=== PATIENT | female | born 2000 | race Caucasian/White ===

== ENCOUNTER 2022-04-19 14:17 | Emergency (ER) | payer OTHER ==
[2022-04-19 14:53] LABS: BILIRUBIN,URINE NEGATIVE (NEGATIVE); GLUCOSE, URINE (UA) NEGATIVE (NEGATIVE); KETONES,URINE (UA) NEGATIVE (NEGATIVE); LEUKOCYTE ESTERASE, URINE NEGATIVE (NEGATIVE); NITRITE,URINE NEGATIVE (NEGATIVE); OCCULT BLOOD,URINE SMALL (NEGATIVE); PROTEIN,URINE NEGATIVE (NEGATIVE); UROBILINOGEN,URINE 0.2 (NORMAL) E.U./dL (NORMAL)
[2022-04-19 14:58] LABS: CLARITY,URINE HAZY (CLEAR)
[2022-04-19 14:59] LABS: HCG UR QUAL NEGATIVE
--- NOTE | 2022-04-19 15:05 | ED Physician Documentation ---
History of Present Illness - Stated complaint Stated Complaint: FEMALE - Chief complaint Chief Complaint: Abd Pain - Additonal information Additional information: 21-year-old female presents emergency department for evaluation of vaginal b leeding this been ongoing for 1 month. She states that she typically gets her periods about every 3 to 4 months and they only last for 1 week. Over the last few days she has been having heavy bleeding saturating at least 5 pads a day. Over the last 3 days she has begun to have some burning when she urinates as well as bilateral lower pelvic pain. No fevers nausea or vomiting. She is concerned she could have a UTI. She is not on any control or oral hormones. Denies any history of prolonged vaginal bleeding in the past. Does not smoke. Review of Systems Constitutional: denies: Fever, Chills GI: reports: Abdominal Pain : reports: Dysuria, Vaginal bleeding, Irregular menses. denies: Hematuria, Discharge Skin: reports: Reviewed and negative Musculoskeletal: reports: Reviewed and negative PD PAST MEDICAL HISTORY - Present Medications Home Medications: Ambulatory Orders Medication Instructions Recorded Confirmed Norgestimate-Ethinyl Estradiol 1 each PO DAILY #28 tablet 04/19/22 [Sprintec 28 Day Tablet] Ondansetron Odt [Zofran] 4 mg TL Q6H PRN #10 tablet 04/19/22 - Allergies Allergies/Adverse Reactions: Allergies Allergy/AdvReac Type Severity Reaction Status Date / Time No Known Drug Allergies Allergy Verified 04/19/22 14:27 PD ED PE NORMAL - General General: Alert and oriented X 3, No acute distress - HEENT HEENT: PERRL - Neck Neck: Supple, no meningeal sign, No adenopathy - Cardiac Cardiac: RRR, No murmur - Respiratory Respiratory: Clear bilaterally - Abdomen Abdomen: Normal bowel sounds, Soft. No: Non tender (Firm tender uterus noted. No guarding or rebound.) - Back Back: No CVA TTP, No spinal TTP - Derm Derm: Normal color, Warm and dry, No rash - Neuro Neuro: Alert and oriented X 3 Eye Opening: Spontaneous Motor: Obeys Commands Verbal: Oriented GCS Score: 15 Results - Vitals Vitals: Vital Signs - 24 hr 04/19/22 14:21 Temperature 36.2 C L Heart Rate 56 L Respiratory 16 Rate Blood Pressure 150/79 H O2 Saturation 100 Oxygen O2 Source Room air - Labs Labs: Laboratory Tests 04/19/22 04/19/22 04/19/22 14:34 15:09 15:09 WBC 6.7 RBC 3.70 L Hgb 10.1 L Hct 31.5 L MCV 85.1 MCH 27.3 MCHC 32.1 RDW 12.7 Plt Count 346 MPV 11.0 H Neut # (Auto) 3.7 Lymph # (Auto) 2.4 [place] # (Auto) 0.5 Eos # (Auto) 0.1 Baso # (Auto) 0.1 Absolute Nucleated RBC 0.00 Nucleated RBC % 0.0 Sodium 138 Potassium 3.8 Chloride 107 Carbon Dioxide 25 Anion Gap 6.0 BUN 14 Creatinine 0.5 Estimated GFR (MDRD) 159 Glucose 102 H Calcium 9.3 Total Bilirubin 0.6 AST 27 ALT 19 Alkaline Phosphatase 107 Total Protein 7.4 Albumin 3.9 Globulin 3.5 Albumin/Globulin Ratio 1.1 Lipase 32 Urine Color YELLOW Urine Clarity HAZY Urine pH 6.0 Ur Specific [place] >=1.030 H Urine Protein NEGATIVE Urine Glucose (UA) NEGATIVE Urine Ketones NEGATIVE Urine Occult Blood SMALL H Urine Nitrite NEGATIVE Urine Bilirubin NEGATIVE Urine Urobilinogen 0.2 (NORMAL) Ur Leukocyte Esterase NEGATIVE Urine RBC 0-5 Urine WBC 0-3 Ur Squamous Epith Cells MOD Squamous H Urine Bacteria Many H Ur Microscopic Review INDICATED Urine Culture Comments NOT INDICATED Urine HCG, Qual NEGATIVE - Rads (name of study) pelvic US Radiology: See rad report, Other (Per veterinary surgery technologist polycystic ovaries bilaterally. No free fluid. No fibroids.) PD Medical Decision Making - ED course Complexity details: reviewed results, considered differential, d/w patient, d/w internet consultant (Fabio) ED course: 21-year-old female presents to the emergency department for evaluation of prolonged episode of vaginal bleeding. She reports that she typically has irregular cycles every 3 to 4 months but they only last 1 week. This bleeding cycle began a month ago and has not stopped and over the last few days is gotten heavier. No syncope or tachycardia. On presentation to the emergency department she has normal vitals. I did obtain a CBC electrolytes and a urinalysis. She has a mild anemia with a hemoglobin of 10.1 and a crit of 31. There is no previous for comparison the patient denies any previous history of anemia. Her electrolytes were without acute worrisome findings. Urinalysis shows no findings of infection. She is not . Given the prolonged menstrual cycle we did obtain a pelvic ultrasound looking for fibroids. Per the veterinary surgery technologist no uterine fibroids were seen though she does have polycystic ovaries bilaterally. I briefly discussed this case with on-call OB Dr. Mccarthy. As patient is not a smoker and she has developed some mild anemia he would recommend starting an estrogen containing OCP such as Sprintec. He 5 tablets day 1 then 4 tablets day two, then 3 day 3, 2 tablets day 4 then 1 tablet daily thereafter. Patient should obtain [place] discussed the usual emergent return precautions for concerns of failure of symptoms to resolve any tachycardia fainting or syncopal episodes Departure - Departure Disposition: 01 Home, Self Care Clinical Impression: DUB (dysfunctional uterine bleeding), Polycystic bilateral ovaries Anemia Qualifiers: Anemia type: iron deficiency Iron deficiency anemia type: chronic blood loss Qualified Code(s): D50.0 - Iron deficiency anemia secondary to blood loss (chronic) Condition: Stable Record reviewed to determine appropriate education?: Yes Instructions: ED Bleed Irregular Vaginal Prescriptions: Norgestimate-Ethinyl Estradiol [Sprintec 28 Day Tablet] 1 each PO DAILY #28 tablet Ondansetron Odt [Zofran] 4 mg TL Q6H PRN #10 tablet PRN Reason: Nausea / Vomiting Comments: You were seen today in the emergency department because you have been having a prolonged menstrual cycle that lasted about 1 month and it has started to get heavier. You have developed a mild anemia. Your hemoglobin is 10.1. This is most likely due to the prolonged vaginal bleeding. The ultrasound today showed that you have mild polycystic ovaries bilaterally. This can be a cause of your prolonged vaginal bleeding. In order to stop this bleeding cycle we are going to start you on an estrogen cream containing control called Sprintec. You will take 5 tablets day 1, then 4 tablets day 2, then 3 tablets day 3, then 2 tablets daily For then 1 tablet thereafter. I have ordered you 3 refills of the control. Taking larger doses of estrogen for for short-term can cause some nausea so I have also sent some Zofran to the pharmacy for you Do not smoke or use nicotine-containing tablets while on estrogen-containing control. It can increase your risk to develop blood clots. I would expect with this treatment that your bleeding starts to resolve over the next week. If your bleeding does not resolve, gets heavier or you have any fainting episodes you do need to return to the ER. It is important that you discuss this ED visit with your primary care provider at [facility]. They may elect to make a referral for you to a women's health or OB provider.
[2022-04-19 15:15] LABS: BASOPHILS # (AUTO) 0.1 10^3/uL (0.0-0.1); BASOPHILS % (AUTO) 0.7 %; EOSINOPHILS # (AUTO) 0.1 10^3/uL (0.0-0.7); EOSINOPHILS % (AUTO) 2.1 %; HCT - HEMATOCRIT 31.5 % (37.0-47.0); HGB - HEMOGLOBIN 10.1 g/dL (12.0-16.0); LYMPHOCYTES # (AUTO) 2.4 10^3/uL (1.5-3.5); LYMPHOCYTES % (AUTO) 35.3 %; MEAN CORPUSCULAR HEMOGLOBIN 27.3 pg (27.0-31.0); MEAN CORPUSCULAR HGB CONC 32.1 g/dL (32.0-36.0); MEAN CORPUSCULAR VOLUME 85.1 fL (81.0-99.0); MONOCYTES # (AUTO) 0.5 10^3/uL (0.0-1.0); MONOCYTES % (AUTO) 7.4 %; NEUTROPHILS # (AUTO) 3.7 10^3/uL (1.5-6.6); NEUTROPHILS % (AUTO) 54.4 %; PLT - PLATELET COUNT 346 10^3/uL (130-450); RED CELL DISTRIBUTION WIDTH 12.7 % (12.0-15.0); WHITE BLOOD COUNT 6.7 x10^3/uL (4.8-10.8)
[2022-04-19 15:19] LABS: BACTERIA,URINE Many /HPF (None Seen); RBC,URINE 0-5 /HPF (0-5); SQUAMOUS EPITHELIAL CELL,UR MOD Squamous (<= Few); WBC,URINE 0-3 /HPF (0-5)
[2022-04-19 15:27] LABS: ALBUMIN 3.9 g/dL (3.2-5.5); ALBUMIN/GLOBULIN RATIO 1.1 (1.0-2.2); BILIRUBIN,TOTAL 0.6 mg/dL (0.2-1.0); CALCIUM 9.3 mg/dL (8.5-10.3); CREATININE 0.5 mg/dL (0.4-1.0); POTASSIUM 3.8 mmol/L (3.5-5.0); TOTAL PROTEIN 7.4 g/dL (6.7-8.2)
[2022-04-19 16:16] VITALS: BP 136/67
--- NOTE | 2022-04-19 17:06 | Ultrasound Report ---
PROCEDURE: Pelvic w/Transvag+Doppler Comp INDICATIONS: vaginal bleeding X 1 month TECHNIQUE: Real-time scanning was performed of the pelvic organs, with image documentation. Additional endovagi nal scanning was necessary due to incomplete visualization of the adnexal and endometrial structures by transabdominal scanning. Doppler interrogation was performed of the ovaries bilaterally. COMPARISON: None. FINDINGS: No pathologic free abdominal or pelvic fluid. Uterus: Uterus is normal in size at 6.6 x 3.6 x 4.4 cm. The endometrium measures 11 mm in combined thickness. Ovaries: The right ovary measures 4.9 x 2.6 x 2.3 cm, with a calculated volume of 15.3 cc and the le ft ovary measures 3.9 x 2.8 x 2.8 cm, with a calculated volume of 16 cc. No significant ovarian abno rmalities are seen. There are more than 12 follicles seen on each side. No adnexal masses are seen . Normal appearing arterial and venous waveforms are confirmed to each ovary.] Other: No free pelvic fluid. IMPRESSION: More than 12 follicles can be seen involving each ovary. Please consider polycystic ovar moncho syndrome. Note: Concordant preliminary findings given by the sports physiotherapist upon the completion of the examination to Gretel Olmos at 3:55 PM on 04/19/2022. Reviewed by: Fly Chapa MD on 04/19/2022 4:04 PM [facility] Approved by: Fly Chapa MD on 04/19/2022 4:04 PM [facility] Station ID: [id number]
== END 2022-04-19 16:24 | disposition home or self-care (01) ==
LOC: ED 14:17
DX: N93.8 Other specified abnormal uterine and vaginal bleeding (principal); D50.0 Iron deficiency anemia secondary to blood loss (chronic)
CPT/HCPCS: 36415; 80053; 81001; 81003; 81025; 83690; 85025; 87086; 93975; 99284

== ENCOUNTER 2023-06-15 22:28 | Emergency (ER) | payer OTHER ==
--- NOTE | 2023-06-16 00:06 | ED Physician Documentation ---
PD HPI CHEST PAIN - Stated complaint Stated Complaint: CHEST PX - Chief complaint Chief Complaint: Cardiac - History obtained from History obtained from: Patient - Additional information Additional information: 22-year-old woman with history of anxiety presents with chest pain starting today, resolving in the emergency department. Also with high blood pressure. Denies shortness of breath, cough, hemoptysis, fever, leg swelling, nausea or vomiting. PD PAST MEDICAL HISTORY - Past Medical History Past Medical History: Yes Cardiovascular: None Respiratory: None Neuro: None Endocrine/Autoimmune: None GI: None RETAIL SHIFT LEADER: None : None HEENT: None Psych: Anxiety Musculoskeletal: None Derm: None - Past Surgical History Past Surgical History: No - Present Medications Home Medications: Ambulatory Orders Medication Instructions Recorded Confirmed Norgestimate-Ethinyl Estradiol 1 each PO DAILY #28 tablet 04/19/22 [Sprintec 28 Day Tablet] Ondansetron Odt [Zofran] 4 mg TL Q6H PRN #10 tablet 04/19/22 - Allergies Allergies/Adverse Reactions: Allergies Allergy/AdvReac Type Severity Reaction Status Date / Time No Known Drug Allergies Allergy Verified 06/15/23 22:42 - Social History Does the pt smoke?: No Smoking Status: Never smoker Does the pt drink ETOH?: No Does the pt have substance abuse?: No - Immunizations Immunizations are current?: Yes - POLST Patient has POLST: No PD ED PE NORMAL - Vitals Vital signs reviewed: Yes - General General: Alert and oriented X 3, No acute distress, Well developed/nourished - HEENT HEENT: Atraumatic, PERRL, EOMI, Moist mucous membranes, Pharynx benign - Neck Neck: Supple, no meningeal sign - Cardiac Cardiac: RRR - Respiratory Respiratory: No respiratory distress, Clear bilaterally - Derm Derm: Normal color, Warm and dry Results - Vitals Vitals: Vital Signs - 24 hr 06/15/23 22:42 Temperature 36.8 C Heart Rate 100 Respiratory 18 Rate Blood Pressure 160/100 H O2 Saturation 99 Oxygen O2 Source Room air - EKG (time done) 8419 EKG releavant findings:: EKG personally interpreted by author of this note. Relevant findings are: Rate: Rate (enter#) (91) Rhythm: NSR [place]: Normal Intervals: Normal NM QRS: Normal Ischemia: Normal ST segments PD Medical Decision Making - ED course ED course: Well-appearing 22-year-old presents with chest pain, now resolved, with normal EKG and vital signs with exception of some hypertension. Advised patient to follow-up outpatient with a primary care provider (referral list provided). Return precautions given. Departure - Departure Disposition: 01 Home, Self Care Clinical Impression: Chest pain Condition: Stable Instructions: ED Panic Attack Comments: You were seen in the emergency department for chest pain, likely due to anxiety attack. Your ekg was normal. Please follow-up with a primary care provider for blood pressure recheck and return to the emergency department if you have any new or worsening symptoms or other concerns. Forms: PCP List
[2023-06-16 01:41] VITALS: BP 140/89; O2SAT 98
== END 2023-06-16 01:31 | disposition home or self-care (01) ==
LOC: ED 22:28
DX: R07.9 Chest pain, unspecified (principal); R03.0 Elevated blood-pressure reading, without diagnosis of hypertension
CPT/HCPCS: 93005; 99283; 99284